=== PATIENT | female | born 1990 | race Caucasian/White ===

== ENCOUNTER 2017-01-02 12:53 | Emergency (ER) | payer BC ==
[2017-01-02 15:04] VITALS: BP 119/74
== END 2017-01-02 16:26 | disposition left against medical advice (07) ==
LOC: ED 12:53
DX: R10.12 Left upper quadrant pain (principal); Z53.21 Procedure and treatment not carried out due to patient leaving prior to being seen by health care provider

== ENCOUNTER 2019-01-24 08:02 | Emergency (ER) | payer BC ==
[2019-01-24] MEDS ORDERED: Ketorolac INJ* 30 MG/ML 1 ML VIAL IV ONE (08:10)
[2019-01-24] MEDS ORDERED: NS 0.9% 1000 ML** 1,000 ML IV ONE (08:10)
[2019-01-24] MEDS ORDERED: Ondansetron INJ* 2 MG/ML VIAL IV ONE (08:21)
[2019-01-24 08:30] LABS: ABS Basophils 0.1 10^3/ul (0-0.2); ABS Eosinophils 0.1 10^3/ul (0-0.6); ABS Lymphocytes 1.8 10^3/ul (1.0-4.8); ABS Monocytes 0.7 10^3/ul (0-0.8); ABS Neutrophils 8.3 10^3/ul (1.5-7.7); Eosinophil % 1.2 %; Hematocrit 36 % (35-47); Hemoglobin 12.1 g/dL (12.0-16.0); Lymphocyte % 16.4 %; Mean Corpuscular HGB Conc 34 g/dL (31-36); Mean Corpuscular Hemoglobin 30 pg (27-31); Mean Corpuscular Volume 90 fL (80-97); Mean Platelet Volume 7.7 fL (7.4-10.4); Nucleated Red Blood Cells % 0.1; Platelet Count 326 10^3/uL (150-450); Red Cell Distribution Width 13 % (10-15)
[2019-01-24 08:46] LABS: Urine Appearance Clear; Urine Bacteria Absent (Absent); Urine Bilirubin Negative (Negative); Urine Blood Negative (Negative); Urine Color Yellow; Urine Glucose Negative (Negative); Urine Ketones Negative (Negative); Urine Nitrite Negative (Negative); Urine Protein Negative (Negative); Urine Red Blood Cell 2+(6-10/hpf) (Absent); Urine Specific Gravity 1.013 (1.010-1.030); Urine Squamous Epithelial Cell Present (Absent); Urine Urobilinogen Negative (Negative); Urine White Blood Cell 2+(11-20/hpf) (Absent)
[2019-01-24 08:47] LABS: ALT 25 U/L (7-52); AST 19 U/L (13-39); Albumin 4.2 g/dL (3.2-5.2); Albumin/Globulin Ratio 1.4 (1-3); Alkaline Phosphatase 66 U/L (34-104); Anion Gap 4 mmol/L (2-11); BUN/Creatinine Ratio 12.7 (8-20); Blood Urea Nitrogen 9 mg/dL (6-24); C Reactive Protein 3.52 mg/L (<8.01); CO2 Carbon Dioxide 27 mmol/L (22-32); Calcium 9.5 mg/dL (8.6-10.3); Chloride 107 mmol/L (101-111); EGFR African American 117.8 (>60); EGFR Non-African American 97.3 (>60); Glucose 60 mg/dL (70-100); Magnesium 1.7 mg/dL (1.9-2.7); Potassium 3.9 mmol/L (3.5-5.0); Sodium 138 mmol/L (135-145); Total Protein 7.2 g/dL (6.4-8.9)
[2019-01-24 08:53] LABS: HCG Pregnancy < 0.60 mIU/mL
--- NOTE | 2019-01-24 10:18 | ED ---
Abdominal Pain/Female - HPI Summary HPI Summary: This patient is a 28-year-old female who is otherwise healthy presenting to the ED with symptoms of UTI including frequency, urgency and some burning with urination. She is also endorsing some left-sided flank pain radiating into the left lower quadrant. She states this is been intermittent since yesterday. UTI symptoms have been present 1 week. She is also endorsing sweats and chills , but denies any subjective fevers that she does not have a thermometer at home. She is otherwise healthy, takes no medications. Denies any abdominal surgeries. History of frequent UTIs, but states she tends to drink plenty of water and which improves her symptoms. She has never had a history of kidney stones. She does have a history of gallstones. Denies smoking or drinking. Denies any drug use. Denies chance of or STDs. - History of Current Complaint Chief Complaint: EDFlankPain Stated Complaint: LOWER LEFT FLANK PAIN Time Seen by Provider: 01/24/19 08:08 Hx Obtained From: Patient ?: No Onset/Duration: Sudden Onset Timing: Constant Severity Initially: Moderate Severity Currently: Moderate Pain Intensity: 8 Pain Scale Used: 0-10 Numeric Location: Flank Radiates to: LLQ Character: Cramping Aggravating Factor(s): Nothing Alleviating Factor(s): Nothing Associated Signs and Symptoms: Positive: Urinary Symptoms - Risk Factors Ectopic Risk Factor: Negative Ovarian Torsion Risk Factor: Negative Allergies/Adverse Reactions: Allergies Allergy/AdvReac Type Severity Reaction Status Date / Time Penicillins AdvReac Diarrhea Verified 01/24/19 08:05 sulfamethoxazole AdvReac Hives Verified 01/24/19 08:05 [From Bactrim] trimethoprim [From Bactrim] AdvReac Hives Verified 01/24/19 08:05 PMH/Surg Hx/FS Hx/Imm Hx Previously Healthy: Yes Endocrine/Hematology History: Denies: Hx Diabetes Cardiovascular History: Denies: Hx Hypertension GI History: Denies: Hx Gastroesophageal Reflux Disease History: Denies: Hx Dialysis, Hx Renal Disease - Surgical History Surgery Procedure, Year, and Place: appendectomy, - Immunization History Hx Pertussis Vaccination: No Immunizations Up to Date: Yes Infectious Disease History: No Infectious Disease History: Denies: Traveled Outside the [place] in Last 30 Days - Family History Known Family History: Positive: Other - cancer - Social History Occupation: Employed Full-time Lives: With Family Alcohol Use: Rare Hx Substance Use: No Substance Use Type: Reports: None Hx Tobacco Use: Yes Smoking Status (MU): Former Smoker Review of Systems Constitutional: Negative Negative: Fever, Chills, Fatigue, Skin Diaphoresis Negative: Palpitations, Chest Pain Positive: frequency, flank pain, pain, urgency Negative: Headache, Weakness Psychological: Normal All Other Systems Reviewed And Are Negative: Yes Physical Exam Triage Information Reviewed: Yes Vital Signs On Initial Exam: Initial Vitals Temp Pulse Resp BP Pulse Ox 98.1 F 90 18 140/84 100 01/24/19 08:05 01/24/19 08:05 01/24/19 08:05 01/24/19 08:05 01/24/19 08:05 Vital Signs Reviewed: Yes Appearance: Positive: Well-Appearing, Well-Nourished Skin: Positive: Warm, Skin Color Reflects Adequate Perfusion Head/Face: Positive: Normal Head/Face Inspection Eyes: Positive: EOMI, TONY, Conjunctiva Clear Neck: Positive: Supple, No Lymphadenopathy Respiratory/Lung Sounds: Positive: Clear to Auscultation, Breath Sounds Present Cardiovascular: Positive: RRR, Pulses are Symmetrical in both Upper and Lower Extremities Abdomen Description: Positive: Soft, CVA Tenderness (L), Other: - tenderness to the LLQ. Negative: No Organomegaly, Distended, Guarding, McBurney's Point Tenderness, Peritoneal Signs, Splenomegaly Bowel Sounds: Positive: Present Musculoskeletal: Positive: Normal, Strength/ROM Intact Neurological: Positive: Sensory/Motor Intact, Alert, Oriented to Person Place, Time, Speech Normal Psychiatric: Positive: Normal, Affect/Mood Appropriate AVPU Assessment: Alert Diagnostics - Vital Signs Vital Signs Temp Pulse Resp BP Pulse Ox 01/24/19 08:05 98.1 F 90 18 140/84 100 - Laboratory Lab Results: Lab Results 01/24/19 01/24/19 01/24/19 Range/Units 08:22 08:22 08:22 WBC 11.0 H (3.5-10.8) 10^3/uL RBC 4.00 (3.70-4.87) 10^6 /uL Hgb 12.1 (12.0-16.0) g/dL Hct 36 (35-47) % MCV 90 (80-97) fL MCH 30 (27-31) pg MCHC 34 (31-36) g/dL RDW 13 (10-15) % Plt Count 326 (150-450) 10^3/uL MPV 7.7 (7.4-10.4) fL Neut % (Auto) 75.1 % Lymph % (Auto) 16.4 % Victoria % (Auto) 6.8 % Eos % (Auto) 1.2 % Baso % (Auto) 0.5 % Absolute Neuts (auto) 8.3 H (1.5-7.7) 10^3/ul Absolute Lymphs (auto) 1.8 (1.0-4.8) 10^3/ul Absolute Monos (auto) 0.7 (0-0.8) 10^3/ul Absolute Eos (auto) 0.1 (0-0.6) 10^3/ul Absolute Basos (auto) 0.1 (0-0.2) 10^3/ul Absolute Nucleated RBC 0.0 10^3/ul Nucleated RBC % 0.1 Sodium 138 (135-145) mmol/L Potassium 3.9 (3.5-5.0) mmol/L Chloride 107 (101-111) mmol/L Carbon Dioxide 27 (22-32) mmol/L Anion Gap 4 (2-11) mmol/L BUN 9 (6-24) mg/dL Creatinine 0.71 (0.51-0.95) mg/dL Est GFR ( Amer) 117.8 (>60) Est GFR (Non-Af Amer) 97.3 (>60) BUN/Creatinine Ratio 12.7 (8-20) Glucose 60 L (70-100) mg/dL Lactic Acid (0.5-2.0) mmol/L Calcium 9.5 (8.6-10.3) mg/dL Magnesium 1.7 L (1.9-2.7) mg/dL Total Bilirubin 0.20 (0.2-1.0) mg/dL AST 19 (13-39) U/L ALT 25 (7-52) U/L Alkaline Phosphatase 66 (34-104) U/L C-Reactive Protein 3.52 (<8.01) mg/L Total Protein 7.2 (6.4-8.9) g/dL Albumin 4.2 (3.2-5.2) g/dL Globulin 3.0 (2-4) g/dL Albumin/Globulin Ratio 1.4 (1-3) Lipase 12 (11.0-82.0) U/L Beta HCG, Quant < 0.60 mIU/mL Urine Color Yellow Urine Appearance Clear Urine pH 5.0 (5-9) Ur Specific [place] 1.013 (1.010-1.030) Urine Protein Negative (Negative) Urine Ketones Negative (Negative) Urine Blood Negative (Negative) Urine Nitrate Negative (Negative) Urine Bilirubin Negative (Negative) Urine Urobilinogen Negative (Negative) Ur Leukocyte Esterase Trace A (Negative) Urine WBC (Auto) 2+(11-20/hpf) A (Absent) Urine RBC (Auto) 2+(6-10/hpf) A (Absent) Ur Squamous Epith Cells Present A (Absent) Urine Bacteria Absent (Absent) Urine Glucose Negative (Negative) Urine Ascorbic Acid * A (Negative) 01/24/19 Range/Units 08:22 WBC (3.5-10.8) 10^3/uL RBC (3.70-4.87) 10^6 /uL Hgb (12.0-16.0) g/dL Hct (35-47) % MCV (80-97) fL MCH (27-31) pg MCHC (31-36) g/dL RDW (10-15) % Plt Count (150-450) 10^3/uL MPV (7.4-10.4) fL Neut % (Auto) % Lymph % (Auto) % Victoria % (Auto) % Eos % (Auto) % Baso % (Auto) % Absolute Neuts (auto) (1.5-7.7) 10^3/ul Absolute Lymphs (auto) (1.0-4.8) 10^3/ul Absolute Monos (auto) (0-0.8) 10^3/ul Absolute Eos (auto) (0-0.6) 10^3/ul Absolute Basos (auto) (0-0.2) 10^3/ul Absolute Nucleated RBC 10^3/ul Nucleated RBC % Sodium (135-145) mmol/L Potassium (3.5-5.0) mmol/L Chloride (101-111) mmol/L Carbon Dioxide (22-32) mmol/L Anion Gap (2-11) mmol/L BUN (6-24) mg/dL Creatinine (0.51-0.95) mg/dL Est GFR ( Amer) (>60) Est GFR (Non-Af Amer) (>60) BUN/Creatinine Ratio (8-20) Glucose (70-100) mg/dL Lactic Acid 0.7 (0.5-2.0) mmol/L Calcium (8.6-10.3) mg/dL Magnesium (1.9-2.7) mg/dL Total Bilirubin (0.2-1.0) mg/dL AST (13-39) U/L ALT (7-52) U/L Alkaline Phosphatase (34-104) U/L C-Reactive Protein (<8.01) mg/L Total Protein (6.4-8.9) g/dL Albumin (3.2-5.2) g/dL Globulin (2-4) g/dL Albumin/Globulin Ratio (1-3) Lipase (11.0-82.0) U/L Beta HCG, Quant mIU/mL Urine Color Urine Appearance Urine pH (5-9) Ur Specific [place] (1.010-1.030) Urine Protein (Negative) Urine Ketones (Negative) Urine Blood (Negative) Urine Nitrate (Negative) Urine Bilirubin (Negative) Urine Urobilinogen (Negative) Ur Leukocyte Esterase (Negative) Urine WBC (Auto) (Absent) Urine RBC (Auto) (Absent) Ur Squamous Epith Cells (Absent) Urine Bacteria (Absent) Urine Glucose (Negative) Urine Ascorbic Acid (Negative) Result Diagrams: 01/24/19 08:22 01/24/19 08:22 Lab Statement: Any lab studies that have been ordered have been reviewed, and results considered in the medical decision making process. Abdominal Pain Fem Course/Dx - Course Course Of Treatment: During his course of treatment, the patient's evaluated for left-sided flank pain radiating to the left lower quadrant as well as suprapubic tenderness and symptoms of frequency, urgency. On physical examination, patient endorses left-sided CVA tenderness, with right-sided CVA tenderness. She is also having suprapubic tenderness on light palpation. No pain to the LLQ, RLQ or RUQ. Negative Niño sign. No pain over McBurney's point, negative Rovsing. Patient appears well, nondiaphoretic and nontoxic appearing. Lungs CTA, RRR. CT abdomen/pelvis obtained which shows no nephrolithiasis or hydronephrosis. UA obtained which shows 2+ to the PVCs and 2 + RBCs. She is given 30 mg Toradol IV as well as normal saline. She states this improved her symptoms and she is currently denying any back pain on reexamination. She will be treated for UTI with a possible pyelonephritis based on sweats, chills and elevated WBC. She is given ciprofloxacin twice daily 7 days. She is okay with this plan and discharged. She is given strict return precautions and voices no concerns at this time. - Diagnoses Differential Diagnosis: Positive: Pelvic Inflammatory Disease, Renal Colic, Urinary Tract Infection, Other - Pyelonephritis Provider Diagnoses: UTI (urinary tract infection) Discharge ED - Sign-Out/Discharge Documenting (check all that apply): Patient Departure Patient Received Moderate/Deep Sedation with Procedure: No - Discharge Plan Condition: Stable Disposition: HOME Prescriptions: Ciprofloxacin TAB* [Cipro 500 MG TAB*] 500 mg PO BID #14 tab Patient Education Materials: Urinary Tract Infection in Women (ED) Referrals: Session Stuart MCGRATH [Primary Care Provider] - Additional Instructions: Ibuprofen 600mg three times daily Moist heat to the area may help Cipro twice daily x 7 days Drink plenty of water If symptoms become worse - return to the ED immediately - Billing Disposition and Condition Condition: STABLE Disposition: Home
[2019-01-24 10:20] VITALS: BP 125/77
[2019-01-24 11:16] LABS: HIV 4th Generation Nonreactive (Nonreactive)
--- NOTE | 2019-01-27 06:05 | PN ---
Progress Note - Progress Note Date of Service: 01/24/19 Note: Urine culture final grew Escherichia coli 100,000 Patient was placed on ciprofloxacin prior to discharge This is sensitive to organism Nothing further required
== END 2019-01-24 10:15 | disposition home or self-care (01) ==
LOC: ED 08:02
DX: N39.0 Urinary tract infection, site not specified (principal); K80.20 Calculus of gallbladder without cholecystitis without obstruction; Z87.891 Personal history of nicotine dependence; Z88.0 Allergy status to penicillin; Z88.1 Allergy status to other antibiotic agents
CPT/HCPCS: 36415; 74176; 80053; 81003; 81015; 83605; 83690; 83735; 84702; 85025; 86140; 87077; 87086; 87186; 87389; 96361; 96374; 96375; 99282; J1885; J2405

== ENCOUNTER 2019-06-13 09:53 | Emergency (ER) | payer BC ==
[2019-06-13 10:45] LABS: Rapid Strep Molecular Positive (Negative)
--- NOTE | 2019-06-13 10:48 | ED ---
Complex/Multi-Sys Presentation - HPI Summary HPI Summary: Patient is a 29 y/o F presenting to [facility] with complaints of left-sided abdominal pain that radiates to her back, a skin "burning" sensation, N/V and rhinorrhea. Diarrhea is denied. Patient claims that everyone in the house that she has been living in has had flu-like Sx and that she has been experiencing these Sx for the past few weeks. She also notes that she was started on nitrofurantoin for UTI. Patient reports abdominal pain onset last night, . Patient notes Hx of tubal ligation. She denies tobacco, alcohol, and substance usage. Home medications and allergies are reviewed. - History Of Current Complaint Chief Complaint: EDFluSymptoms Time Seen by Provider: 06/13/19 10:12 Hx Obtained From: Patient Onset/Duration: Lasting Days, Lasting Weeks, Still Present Timing: Days, Weeks Location: Pain At: - abdomen Associated Signs And Symptoms: Positive: Nausea, Vomiting, Abdominal Pain, Other - positive - rhinorrhea, skin "burning" sensation. Negative: Diarrhea - Allergies/Home Medications Allergies/Adverse Reactions: Allergies Allergy/AdvReac Type Severity Reaction Status Date / Time Penicillins AdvReac Diarrhea Verified 06/13/19 10:00 sulfamethoxazole AdvReac Hives Verified 06/13/19 10:00 [From Bactrim] trimethoprim [From Bactrim] AdvReac Hives Verified 06/13/19 10:00 PMH/Surg Hx/FS Hx/Imm Hx Endocrine/Hematology History: Denies: Hx Diabetes Cardiovascular History: Denies: Hx Hypertension GI History: Denies: Hx Gastroesophageal Reflux Disease History: Denies: Hx Dialysis, Hx Renal Disease - Surgical History Surgery Procedure, Year, and Place: appendectomy, Infectious Disease History: No Infectious Disease History: Denies: Traveled Outside the [place] in Last 30 Days - Family History Known Family History: Positive: Other - cancer - Social History Alcohol Use: Rare Hx Substance Use: No Substance Use Type: Reports: None Hx Tobacco Use: Yes Smoking Status (MU): Former Smoker Review of Systems Positive: Nasal Discharge Positive: Abdominal Pain, Vomiting, Nausea. Negative: Diarrhea Skin: Other - positive - skin "burning" sensation All Other Systems Reviewed And Are Negative: Yes Physical Exam - Summary Physical Exam Summary: VITAL SIGNS: Reviewed. GENERAL: Patient is a well-developed and nourished female who is lying comfortable in the stretcher. Patient is not in any acute respiratory distress. HEAD AND FACE: No signs of trauma. No ecchymosis, hematomas or skull depressions. No sinus tenderness. EYES: PERRLA, EOMI x 2, No injected conjunctiva, no nystagmus. EARS: Hearing grossly intact. Ear canals and tympanic membranes are within normal limits. MOUTH: Oropharynx within normal limits. NECK: Supple, trachea is midline, no adenopathy, no JVD, no carotid bruit, no c- spine tenderness, neck with full ROM. CHEST: Symmetric, no tenderness at palpation. LUNGS: Clear to auscultation bilaterally. No wheezing or crackles. CVS: Regular rate and rhythm, S1 and S2 present, no murmurs or gallops appreciated. ABDOMEN: Soft, left-sided abdominal tenderness. No signs of distention. No rebound, no guarding, and no masses palpated. Bowel sounds are normal. EXTREMITIES: FROM in all major joints, no edema, no cyanosis or clubbing. NEURO: Alert and oriented x 3. No acute neurological deficits. Speech is normal and follows commands. SKIN: Dry and warm. Triage Information Reviewed: Yes Vital Signs On Initial Exam: Initial Vitals Temp Pulse Resp BP Pulse Ox 98.7 F 122 18 142/79 96 06/13/19 09:57 06/13/19 09:57 06/13/19 09:57 06/13/19 09:57 06/13/19 09:57 Vital Signs Reviewed: Yes Procedures - Sedation Patient Received Moderate/Deep Sedation with Procedure: No Diagnostics - Vital Signs Vital Signs Temp Pulse Resp BP Pulse Ox 06/13/19 09:57 98.7 F 122 18 142/79 96 - Laboratory Lab Results: Lab Results 06/13/19 06/13/19 Range/Units 10:30 10:30 Influenza A (Rapid) Pending Influenza B (Rapid) Pending Group A Strep Rapid Positive A (Negative) Result Diagrams: 06/13/19 11:24 06/13/19 11:23 Lab Statement: Any lab studies that have been ordered have been reviewed, and results considered in the medical decision making process. - Radiology ABDOMEN X-RAY Radiology Interpretation Completed By: Radiologist Summary of Radiographic Findings: IMPRESSION: NO EVIDENCE FOR OBSTRUCTION. THIS REPORT WAS REVIEWED BY ED PHYSICIAN. CXR Radiology Interpretation Completed By: Radiologist Summary of Radiographic Findings: IMPRESSION: NO ACTIVE CARDIOPULMONARY DISEASE. THIS REPORT WAS REVIEWED BY ED PHYSICIAN. - Ultrasound ABDOMEN US Ultrasound Interpretation Completed By: Radiologist Summary of Ultrasound Findings: IMPRESSION: CHOLELITHIASIS. THIS REPORT WAS REVIEWED BY ED PHYSICIAN. - EKG 1005 Cardiac Rate: Tachycardia - RATE OF 110 BPM EKG Rhythm: Sinus Tachycardia Summary of EKG Findings: EKG showed sinus tachycardia with rate of 110 BPM, no ST elevations. EKG has been reviewed and interpreted by ED physician. Re-Evaluation - Re-Evaluation First Eval Re-Evaluation Time: 13:04 Comment: Patient now has complaints of right upper quadrant pain without tenderness. Second Eval Re-Evaluation Time: 15:08 Change: Improved Comment: After medications the symptoms have improved. The patient is feeling better. She will be discharged home with follow-up with primary care physician. Patient is hemodynamically stable alert and oriented 3. I discussed all the findings and test results with the patient. Patient was instructed to return to the emergency room immediately if any of the symptoms return worsens. Plan of care was discussed with the patient and understands and agrees. All questions were answered at patient satisfaction. There were no further complaints or concerns. Lung exam before discharge: CTA B/L. Good air exchange. No wheezing or crackles heard. CVS: S1 and S2 present. No murmurs appreciated. Patient is alert and oriented x 3. Patient is hemodynamically stable. Patient will be discharged home with follow up PCP in the next 2-3 days Complex Multi-Symp Course/Dx Assessment/Plan: Patient is a 29 y/o F presenting to [facility] with complaints of left-sided abdominal pain that radiates to her back, a skin "burning" sensation , N/V and rhinorrhea. Diarrhea is denied. Patient claims that everyone in the house that she has been living in has had flu-like Sx and that she has been experiencing these Sx for the past few weeks. She also notes that she was started on nitrofurantoin for UTI. Patient reports abdominal pain onset last night, 06/12/19. Patient notes Hx of tubal ligation. She denies tobacco, alcohol , and substance usage. Home medications and allergies are reviewed. In the ED course the patient was placed in a larriman, IV access was obtained, IV fluids started. Blood test w/o a significant abnormality except for WBCs of 14.2, absolute neutrophils of 13.1, CRP of 14.3. Influenza A is negative, influenza B is negative, and rapid strep is positive. Chest x-ray negative for an acute pathology. Abdominal x-ray negative for an acute pathology. Patient was complaining of right upper quadrant pain therefore the right upper quadrant ultrasound shows cholelithiasis without any acute cholecystitis. In the ED course the patient was given Toradol and Augmentin. After medications the symptoms have improved. The patient is feeling better. She will be discharged home with follow-up with primary care physician. Patient is hemodynamically stable alert and oriented 3. I discussed all the findings and test results with the patient. Patient was instructed to return to the emergency room immediately if any of the symptoms return worsens. Plan of care was discussed with the patient and understands and agrees. All questions were answered at patient satisfaction. There were no further complaints or concerns. Lung exam before discharge: CTA B/L. Good air exchange. No wheezing or crackles heard. CVS : S1 and S2 present. No murmurs appreciated. Patient is alert and oriented x 3. Patient is hemodynamically stable. Patient will be discharged home with follow up PCP in the next 2-3 days - Diagnoses Provider Diagnoses: Strep pharyngitis, Cholelithiasis Discharge ED - Sign-Out/Discharge Documenting (check all that apply): Patient Departure - discharge - Discharge Plan Condition: Stable Disposition: HOME Prescriptions: Azithromycin TAB* [Zithromax TAB (Z-CLINTON) 250 mg #6 tabs] 250 mg PO DAILY #4 tab Patient Education Materials: Gallstones (ED), Strep Throat (ED) Referrals: Session Stuart MCGRATH [Primary Care Provider] - 3 Days Additional Instructions: PLEASE RETURN TO ED FOR ANY NEW OR WORSENING SYMPTOMS. PLEASE FOLLOW UP WITH YOUR PRIMARY CARE PHYSICIAN WITHIN THREE DAYS. - Billing Disposition and Condition Condition: STABLE Disposition: Home - Attestation Statements Document Initiated by Scribe: Yes Documenting Scribe: YURIDIA WILD Provider For Whom Lauraibe is Documenting (Include Credential): CESAR DWYER MD Scribe Attestation: YURIDIA Coats, scribed for CESAR DWYER MD on 06/13/19 at 2138. Scribe Documentation Reviewed: Yes Provider Attestation: The documentation as recorded by the scribe, YURIDIA WILD accurately reflects the service I personally performed and the decisions made by me, CESAR DWYER MD Status of Julia Document: Viewed
[2019-06-13 10:57] LABS: Influenza A Molecular Negative (Negative); Influenza B Molecular Negative (Negative)
[2019-06-13 11:30] LABS: ABS Lymphocytes 0.6 10^3/ul (1.0-4.8); ABS Monocytes 0.5 10^3/ul (0-0.8); ABS Neutrophils 13.1 10^3/ul (1.5-7.7); Eosinophil % 0.2 %; Hematocrit 36 % (35-47); Lymphocyte % 3.9 %; Mean Corpuscular HGB Conc 34 g/dL (31-36); Mean Corpuscular Hemoglobin 31 pg (27-31); Mean Corpuscular Volume 92 fL (80-97); Mean Platelet Volume 7.6 fL (7.4-10.4); Platelet Count 273 10^3/uL (150-450); Red Blood Count 3.91 10^6 /uL (3.70-4.87); Red Cell Distribution Width 13 % (10-15); White Blood Count 14.2 10^3/uL (3.5-10.8)
[2019-06-13 11:48] LABS: ALT 69 U/L (7-52); AST 35 U/L (13-39); Albumin 4.1 g/dL (3.2-5.2); Albumin/Globulin Ratio 1.3 (1-3); Alkaline Phosphatase 71 U/L (34-104); Anion Gap 7 mmol/L (2-11); BUN/Creatinine Ratio 12.9 (8-20); Blood Urea Nitrogen 9 mg/dL (6-24); C Reactive Protein 14.35 mg/L (<8.01); CO2 Carbon Dioxide 25 mmol/L (22-32); Calcium 9.3 mg/dL (8.6-10.3); Chloride 105 mmol/L (101-111); EGFR African American 118.9 (>60); EGFR Non-African American 98.3 (>60); Globulin 3.1 g/dL (2-4); Glucose 98 mg/dL (70-100); Sodium 137 mmol/L (135-145); Total Protein 7.2 g/dL (6.4-8.9)
[2019-06-13 11:53] LABS: HCG Pregnancy < 0.60 mIU/mL
[2019-06-13] MEDS ORDERED: Azithromycin TAB* 250 MG PO ONE (12:28)
[2019-06-13] MEDS ORDERED: Ketorolac INJ* 30 MG/ML 1 ML VIAL IV PUSH ONE (12:28)
[2019-06-13] MEDS ORDERED: Ondansetron ODT TAB* 4 MG PO ONE (13:04)
[2019-06-13 16:00] VITALS: BP 115/94
== END 2019-06-13 15:45 | disposition home or self-care (01) ==
LOC: ED 09:53
DX: K80.20 Calculus of gallbladder without cholecystitis without obstruction (principal); J02.0 Streptococcal pharyngitis; Z90.89 Acquired absence of other organs; Z87.891 Personal history of nicotine dependence; Z88.0 Allergy status to penicillin; Z88.1 Allergy status to other antibiotic agents; Z88.2 Allergy status to sulfonamides
CPT/HCPCS: 36415; 71046; 74019; 76705; 80053; 83605; 83690; 84702; 85025; 86140; 87651; 93005; 96374; 99284; A9270-GY; J1885